=== PATIENT | male | born 2000 | race Caucasian/White ===

== ENCOUNTER 2023-09-19 08:58 | Day surgery (SDC) | payer OTHER ==
[2023-09-17 11:52] VITALS: BMI 18.7
[2023-09-19] MEDS ORDERED: oxyCODONE HCL 5 MG TABLET PO PRN (10:14)
[2023-09-19] MEDS ORDERED: ONDANSETRON 4 MG/2 ML VIAL IVPUSH PRN (10:14)
[2023-09-19] MEDS ORDERED: LACTATED RINGERS SOLUTION 1,000 ML IV SCH (10:15)
[2023-09-19] MEDS ORDERED: MIDAZOLAM HCL 2 MG/2 ML SINGLE DOSE VIAL ONE (10:42)
[2023-09-19] MEDS ORDERED: PROPOFOL 20 ML ONE (10:42)
[2023-09-19 12:19] VITALS: TEMP 97.4
[2023-09-19 13:22] VITALS: PULSE 98
[2023-09-19 13:25] VITALS: BP 130/74; RESP 18
== END 2023-09-19 13:20 | disposition home or self-care (01) ==
LOC: FASU 08:58
PROVIDERS: ATTEND Orthopaedic Surgery Hand Surgery
PROC: 0LB54ZZ Excision of Right Lower Arm and Wrist Tendon, Percutaneous Endoscopic Approach (ICD-10-PCS; 2023-09-19)
PROC: 0RBN4ZZ Excision of Right Wrist Joint, Percutaneous Endoscopic Approach (ICD-10-PCS; principal; 2023-09-19 11:26)
DX: S63.521A Sprain of radiocarpal joint of right wrist, initial encounter (principal); M67.431 Ganglion, right wrist; X58.XXXA Exposure to other specified factors, initial encounter; Y93.9 Activity, unspecified; Y92.9 Unspecified place or not applicable
CPT/HCPCS: 94760